=== PATIENT | male | born 1970 | race Two or more races ===

== ENCOUNTER 2022-04-24 09:08 | Emergency (ER) | payer MEDICAID ==
[~2022-04-24] VITALS: Ht 177.8 cm; Wt 63.5 kg
--- NOTE | 2022-04-24 09:19 | NUR ---
RECEIVED PT 51 YRS MALE CAME FROM REHAB CENTER CAME BY GABI FOR EVALUTION OF OD asleepy and drowsy resp. spont and easy
--- NOTE | 2022-04-24 09:25 | NUR ---
SEEN BY DR. FROST
--- NOTE | 2022-04-24 09:30 | NUR ---
LAB AT BEED SIDE UNABLE TO DROW BLOOD
--- NOTE | 2022-04-24 10:32 | NUR ---
unable to insrted iv
--- NOTE | 2022-04-24 10:36 | NUR ---
VASILIY YOUNG FROM [facility] [phone]
[2022-04-24 10:43] LABS: BASOPHILS % (AUTO) 0.9 % (0.0-2.0); EOSINOPHILS % (AUTO) 1.3 % (0.0-6.0); HEMATOCRIT 34 % (39-51); HEMOGLOBIN 11.7 g/dL (13.5-17.5); LYMPHOCYTES # (AUTO) 1.1 K/uL (0.8-4.8); MEAN CORPUSCULAR HGB CONC 34 g/dl (31.0-36.0); MEAN CORPUSCULAR VOLUME 90 fL (80-96); MONOCYTES # (AUTO) 0.3 K/uL (0.1-1.30); MONOCYTES % (AUTO) 5.6 % (2.0-12.0); NEUTROPHILS # (AUTO) 3.4 K/uL (1.8-8.9); NEUTROPHILS % (AUTO) 70.2 % (43.0-81.0); PLATELET COUNT (AUTO) 331 K/uL (150-450); RED BLOOD CELL COUNT(AUTO) 3.79 MIL/uL (4.5-6.0); WHITE BLOOD COUNT (AUTO) 4.9 K/uL (4.3-11.0)
--- NOTE | 2022-04-24 10:44 | NUR ---
BLOOD DROW BY LAB TACH
[2022-04-24 11:00] LABS: ALANINE AMINOTRANSFERASE 58 U/L (12-78); ALBUMIN 3.8 g/dL (3.4-5.0); ALCOHOL, BLOOD < 3 mg/dL (0-0); ALKALINE PHOSPHATASE 71 U/L (46-116); ASPARTATE AMINOTRANSFERASE 92 U/L (15-37); BILIRUBIN,DIRECT 0.1 mg/dL (0.0-0.2); BILIRUBIN,TOTAL 0.4 mg/dL (0.2-1.0); CALCIUM, SERUM 9.1 mg/dL (8.5-10.1); CARBON DIOXIDE 28 mmol/L (21-32); CHLORIDE 95 mmol/L (98-107); CREATININE 1.2 mg/dL (0.6-1.3); GLUCOSE 95 mg/dL (74-106); POTASSIUM 3.1 mmol/L (3.5-5.1); SODIUM SERUM 129 mmol/L (136-145); TOTAL PROTEIN, SERUM 7.9 g/dL (6.4-8.2); UREA NITROGEN, BLOOD 23 mg/dL (7-18)
[2022-04-24 11:19] LABS: ACETAMINOPHEN 0 ug/ml (10-30)
[2022-04-24] MEDS ORDERED: IV NS 0.9% 1,000 ML IV ONE (12:30)
[2022-04-24] MEDS ORDERED: POTASSIUM CHLORIDE 20 MEQ TAB.PRT.SR PO ONE (12:33)
[2022-04-24] MEDS: POTASSIUM CHLORIDE 20 MEQ TAB.PRT.SR PO ONE (12:37)
--- NOTE | 2022-04-24 12:53 | NUR ---
UNABLE TO START IV. PT C/O SEVERE BACK PAIN AND CRAMPING. DR FROST MADE AWARE.
[2022-04-24] MEDS ORDERED: HYDROCODONE/APAP 10/325MG TABLET ONE (13:09)
[2022-04-24] MEDS: HYDROCODONE/APAP 10/325MG TABLET PO ONE (13:10)
--- NOTE | 2022-04-24 13:25 | NUR ---
SS consult requested for drug abuse. Pt. is a 51-year-old male who was admitted to [facility] on 04-24-2022 due to overdose. Per EMR, pt. came from rehab facility. Upon SS consult, pt. refused to answer questions with supply chain planner. Pt. presented with a depressed mood and continued to state he was in pain. Pt. had his face covered with blanket and appeared disheveled. Pt. stated he did not want to answer questions with the supply chain planner. estate planner called Rickie Rm from [facility] ([phone]). Rickie ([phone]) stated that the pt. is homeless. Rickie ([phone]) stated that the pt. could possibly return to [id number] [place] [id number] dependent on medical clearance and availability at their facility. Rickie ([phone]) stated to notify when the pt. is ready for discharge to see if he could help. estate planner placed the following substance use and homeless resources in the pt.'s chart: Year-round shelters: [facility] [place] [address] [place], [place] [phone] ; [facility] [address] [place] [address]; [facility] [id number] [facility] [phone] Hygiene: [facility]: [address] [place] ; [facility] [address] [facility] ; [facility] [address] [facility] . Food Resources: [place] [facility] at [facility]- [address] [place]; Meet Each Need with Dignity ([facility]) [address] [facility]; [facility] [address] [facility]; [facility] [address] [place] Mental Health resources provided: [facility] [address] [place] [address] ; [facility] [address] [address] [facility] [address], [place], [place] [id number] ; [place] [facility] [address] [place], [place] [phone] ; [facility] [address] [place] [address] Healthcare Clinics: [facility] [address] [facility], [address] [place]. [place] ; [facility] [address] [facility] [address] [place] [address]; [facility] [address] [facility]. [place] [address] [phone] Substance Abuse resources provided included: [facility] Substance Abuse Self-Helpline ([facility]) ; [facility] [address] [facility]. [place] [address] ; [facility] [address] [facility] [address] ; [facility] [address] [facility] [phone] ; [facility] [address] [facility] [address] ; [facility] [address] [facility] [phone] ; [facility] [address] [facility] [address] ; [facility] ; [facility] ; [place] [facility] [place]; [facility] [place]; [facility] [place]; [facility] [place]; [facility] [place]; [facility] [place]; [facility]. Kelley Rog[place]; Alcoholics Anonymous [facility]; Heri ; Marijuana Anonymous [facility]; Narcotics Anonymous www.na.org;
--- NOTE | 2022-04-24 13:37 | NUR ---
PT HEAD STICK DR. MARGOT ARAUZ AND BAL SALLED FOR MIDLINE TO INSERTED
[2022-04-24] MEDS ORDERED: NALO4SPR BNOSTRILS (13:39)
[2022-04-24] MEDS ORDERED: POTA20TA83 PO (13:39)
--- NOTE | 2022-04-24 13:42 | NUR ---
Pt refuses any and all interventions at this time states "why the fuck cant I go home. I want to go" Pt is Able to get up and ambulate to [facility]. Refused to sign ACI
[2022-04-24 13:44] VITALS: BP 118/65
== END 2022-04-24 13:45 | disposition home or self-care (01) ==
LOC: ER 09:21
DX: T40.411A Poisoning by fentanyl or fentanyl analogs, accidental (unintentional), initial encounter (principal); R40.4 Transient alteration of awareness; E87.6 Hypokalemia; E86.0 Dehydration; F17.200 Nicotine dependence, unspecified, uncomplicated; Z59.00 Homelessness unspecified; Z79.899 Other long term (current) drug therapy; Y92.89 Other specified places as the place of occurrence of the external cause
CPT/HCPCS: 99285; 85025; 80048; 80076; 36415; 80143; 80320; J7030; G0480